=== PATIENT | male | born 1985 | race African-American/Black ===

== ENCOUNTER 2022-08-04 21:26 | Observation (INO) ==
[2022-08-04] MEDS ORDERED: ACETAMINOPHEN 1,000 MG/100 ML VIAL IV STA (22:06)
[2022-08-04 22:13] LABS: Basophils # (auto) 0.04 K/uL (0-0.2); Basophils % (auto) 0.3 %; Eosinophils # (auto) 0.06 K/uL (0-0.50); Eosinophils % (auto) 0.5 %; Hematocrit (blood only) 43.8 % (40.1-51.0); Immature Granulocytes # (auto) 0.05 K/uL (0.00-0.02); Immature Granulocytes % (auto) 0.4 %; Lymphocytes # (auto) 1.83 K/uL (1.2-3.4); Mean Corpuscular Hemoglobin 30.5 pg (25.0-34.0); Mean Corpuscular Hgb Conc 34.2 g/dL (32.0-36.0); Mean Corpuscular Volume 89.2 fL (80.0-100.0); Mean Platelet Volume 9.8 fL (9.4-12.4); Monocytes # (auto) 0.79 K/uL (0.24-0.82); Monocytes % (auto) 6.5 %; Neutrophils # (auto) 9.47 K/uL (1.4-6.5); Neutrophils % (auto) 77.3 %; Platelet Count 314 K/uL (130-400); RDW Coefficient of Variation 13.6 % (11.5-14.5); RDW Standard Deviation 44.7 fL (36.4-46.3); Red Blood Count 4.91 M/uL (4.63-6.08); White Blood Count 12.24 K/ul (4.8-10.8)
[2022-08-04 22:37] LABS: Alanine Aminotransferase 55 U/L (7-52); Albumin Globulin Ratio 0.9 (0.9-2); Albumin Level 3.6 gm/dl (3.4-5.0); Alkaline Phosphatase 139 U/L (34-104); Anion Gap 8 (3-11); Aspartate Aminotransferase 30 U/L (13-39); BUN Creatinine Ratio 10.2 (10-20); Bilirubin,Total 1.1 mg/dl (0.2-1.0); Blood Urea Nitrogen 18 mg/dl (6-23); Calcium 9.4 mg/dl (8.5-10.1); Carbon Dioxide 23 mmol/L (21-32); Chloride 100 mmol/L (98-107); Est GFR (Non-African American) 48.3 ml/min; Globulin 4.2 gm/dl (2.5-4.0); Glucose 100 mg/dl (70-99(Fasting)); Potassium 3.8 mmol/L (3.5-5.1); Sodium 131 mmol/L (136-145); Total Protein 7.8 gm/dl (6.0-8.3)
[2022-08-04 23:09] LABS: Alanine Aminotransferase 50 U/L (7-52); Albumin Level 3.4 gm/dl (3.4-5.0); Alkaline Phosphatase 125 U/L (34-104); Anion Gap 10 (3-11); Aspartate Aminotransferase 28 U/L (13-39); BUN Creatinine Ratio 11.6 (10-20); Bilirubin Direct 0.3 mg/dl (0-0.2); Bilirubin,Total 1.1 mg/dl (0.2-1.0); Blood Urea Nitrogen 18 mg/dl (6-23); Carbon Dioxide 21 mmol/L (21-32); Chloride 101 mmol/L (98-107); Est GFR (African American) 65.8 ml/min; Est GFR (Non-African American) 56.8 ml/min; Glucose 96 mg/dl (70-99(Fasting)); Magnesium 1.8 mg/dl (1.7-2.4); Potassium 3.9 mmol/L (3.5-5.1); Sodium 132 mmol/L (136-145); Total Protein 7.2 gm/dl (6.0-8.3)
[2022-08-04 23:21] LABS: Adenovirus PCR Not Detected (NotDetected); Bordetella parapertussis PCR Not Detected (NotDetected); Bordetella pertussis PCR Not Detected (NotDetected); Chlamydia pneumoniae PCR Not Detected (NotDetected); Coronavirus 229E PCR Not Detected (NotDetected); Coronavirus CoV-2 (COVID19)PCR Not Detected (NotDetected); Coronavirus HKU1 PCR Not Detected (NotDetected); Coronavirus NL63 PCR Not Detected (NotDetected); Coronavirus OC43PCR Not Detected (NotDetected); Human Metapneumovirus PCR Not Detected (NotDetected); Influenza A PCR Not Detected (NotDetected); Influenza B PCR Not Detected (NotDetected); Mycoplasma pneumoniae PCR Not Detected (NotDetected); Parainfluenza Virus 1 PCR Not Detected (NotDetected); Parainfluenza Virus 2 PCR Not Detected (NotDetected); Parainfluenza Virus 3 PCR Not Detected (NotDetected); Parainfluenza Virus 4 PCR Not Detected (NotDetected); Respiratory Syncytial VirusPCR Not Detected (NotDetected); Rhinovirus/Enterovirus PCR Not Detected (NotDetected)
[2022-08-04] MEDS ORDERED: SODIUM CHLORIDE 0.9% 1000ML 2,000 ML IV ONE (23:30)
--- NOTE | 2022-08-05 01:47 | Emergency Department Note ---
History of Present Illness General Chief complaint: Headache Stated complaint: HEADACHE, STIFF NECK, PAIN IN FEET Time Seen by Provider: 08/04/22 22:01 History of Present Illness Maximum Pain Intensity: 8 This 36-year-old presents to the ER complaining of flu like illness Location: Generalized Quality: Achy Severity: Moderate Duration: Past day Timing: Started yesterday Context: Patient was concerned and came in Modifying factors: better with rest; worse with activity Patient complains of fever, headache, body aches and pains. Patient adamantly denies neck stiffness, chest pain, dyspnea, abdominal pain. He states his neck feels fine he just feels crampy all over. No prior heart conditions. Home Medications Medication Instructions Recorded Confirmed Type acetaminophen 300 mg-codeine 30 mg 1 tab PO Q4H PRN Pain 02/13/22 02/13/22 History tablet losartan 50 mg tablet 50 mg PO DAILY 02/13/22 02/13/22 History penicillin V potassium 500 mg 500 mg PO TID 02/13/22 02/13/22 History tablet prednisone 10 mg tablet 10 mg PO UD #30 tabs 02/13/22 Rx prednisone 20 mg tablet 20 mg PO DAILY #18 tabs 03/30/22 Rx naproxen 500 mg tablet 500 mg PO BID PRN pain #20 tabs 07/24/22 Rx Allergies Allergy/AdvReac Type Severity Reaction Status Date / Time No Known Allergies Allergy Verified 02/13/22 18:07 Past Med/Surg History Medical History Gout HTN (hypertension) Surgical History No pertinent past surgical history Social History Smoking Status: Current every day smoker Tobacco Type: E-cigarettes / Vaping Preferred Language: Hebrew Feels Safe at Home: Yes Review of Systems A total of 10 systems reviewed and were otherwise negative Physical Exam Vital Signs Vital Signs - 24 hr 08/04/22 21:28 08/04/22 22:23 08/04/22 22:21 Temperature 37.0 C Temperature Source Temporal Artery Scan Pulse Rate 110 H Pulse Rate [Apical] 104 H Respiratory Rate 20 18 Respiratory Effort / Characteristics Non-Labored Respiratory Depth Normal Normal Respiratory Pattern Regular Blood Pressure 162/115 H Blood Pressure [Right Arm] 162/99 H Blood Pressure Mean 130 Blood Pressure Mean [Right Arm] 120 Pulse Oximetry 94 98 98 Oxygen Delivery Method Room Air Room Air Room Air Sepsis New/Unexplained Change in Mental Status N/A Sepsis Action Taken by Nursing No Action Required 08/04/22 23:00 08/05/22 02:59 Temperature Temperature Source Pulse Rate Pulse Rate [Apical] 99 H 84 Respiratory Rate 26 H 20 Respiratory Effort / Characteristics Respiratory Depth Respiratory Pattern Blood Pressure Blood Pressure [Right Arm] 160/110 H 157/102 H Blood Pressure Mean Blood Pressure Mean [Right Arm] 126 120 Pulse Oximetry 93 96 Oxygen Delivery Method Room Air Room Air Sepsis New/Unexplained Change in Mental Status Sepsis Action Taken by Nursing VITALS: Vitals are noted on the nurse's note and reviewed by myself. Vital signs febrile. GENERAL: Mildly ill-appearing, in no acute distress, nondiaphoretic, well- developed well-nourished. SKIN: The skin was without rashes, erythema, edema, or bruising. There is no tenting of the skin. Capillary reflex less than 2 seconds. HEAD: Normocephalic atraumatic. EARS: External auditory canals clear, tympanic membranes pearly seth without erythema or effusion bilaterally. EYES: Pupils equal round and reactive to light and accommodation. Conjunctivae without injection, sclerae without icterus. Extraocular movements intact. NOSE: Patent, turbinates without inflammation or discharge. No sinus tenderness. MOUTH: Mucous membranes mildly dry. Pharynx without erythema or exudate. Uvula midline. Airway patent. Tongue does not deviate. NECK: Supple without nuchal rigidity. No lymphadenopathy. No thyromegaly. Cervical spine is nontender. No JVD. HEART: Mildly tachycardic rate and rhythm LUNGS: Clear to auscultation bilaterally without wheezes, rales or rhonchi. No retractions or accessory muscle use. ABDOMEN: Positive bowel sounds x 4. Normal tympanic percussion. Soft, nontender, without masses or organomegaly. Mendez sign negative. No guarding or rebound tenderness. No CVA tenderness MUSCULOSKELETAL: No muscle atrophy, erythema, or edema noted. NEURO: Patient was alert and oriented to person place and time. Normal sensation to light and sharp touch. No focal neurological deficits. Course Administered Medications Discontinued Medications Acetaminophen (Ofirmev) 1,000 mg in 100 mls @ 400 mls/hr IV NOW STA Stop: 08/04/22 22:20 Last Infusion: 08/04/22 22:37 Dose: 0 mls/hr Documented By: Admin: 08/04/22 22:16 Dose: 400 mls/hr Documented By: MATTHEW Sodium Chloride (Nss 1000ml) 2,000 mls @ 999 mls/hr IV .Q2H1M ONE Stop: 08/05/22 01:30 Last Infusion: 08/05/22 02:06 Dose: 0 mls/hr Documented By: Admin: 08/04/22 23:45 Dose: 999 mls/hr Documented By: ARUN Ceftriaxone Sodium (Rocephin) 2,000 mg in 70 mls @ 140 mls/hr IV NOW STA Stop: 08/05/22 02:52 Last Admin: 08/05/22 02:35 Dose: Not Given Documented By: ARUN Ceftriaxone Sodium (Rocephin) 2,000 mg in 70 mls @ 140 mls/hr IV NOW STA Stop: 08/05/22 03:08 Last Admin: 08/05/22 02:55 Dose: 140 mls/hr Documented By: ARUN Losartan Potassium (Losartan Potassium 50 Mg Tab) 50 mg PO NOW STA Stop: 08/05/22 02:23 Last Admin: 08/05/22 02:39 Dose: 50 mg Documented By: ARUN Medical Decision Making Medical Records Attestation: I reviewed the patient's medical records. Home Medications Current Medication List: was personally reviewed by me Laboratory Data Attestation: I reviewed the patient's lab results. Result diagrams: 08/04/22 22:00 08/04/22 22:32 Lab Results 08/04/22 08/04/22 08/04/22 Range/Units 22:00 22:00 22:17 WBC 12.24 H (4.8-10.8) K/ul RBC 4.91 (4.63-6.08) M/uL Hgb 15.0 (14.0-18.0) g/dl Hct 43.8 (40.1-51.0) % MCV 89.2 (80.0-100.0) fL MCH 30.5 (25.0-34.0) pg MCHC 34.2 (32.0-36.0) g/dL RDW Std Deviation 44.7 (36.4-46.3) fL RDW Coeff of [place] 13.6 (11.5-14.5) % Plt Count 314 (130-400) K/uL MPV 9.8 (9.4-12.4) fL Immature Gran % (Auto) 0.4 % Neut % (Auto) 77.3 % Lymph % (Auto) 15.0 % [place] % (Auto) 6.5 % Eos % (Auto) 0.5 % Baso % (Auto) 0.3 % Neut # (Auto) 9.47 H (1.4-6.5) K/uL Lymph # (Auto) 1.83 (1.2-3.4) K/uL [place] # (Auto) 0.79 (0.24-0.82) K/uL Eos # (Auto) 0.06 (0-0.50) K/uL Baso # (Auto) 0.04 (0-0.2) K/uL Immature Gran # (Auto) 0.05 H (0.00-0.02) K/uL APTT (21.0-31.0) Seconds PTT Ratio Sodium 131 L (136-145) mmol/L Potassium 3.8 (3.5-5.1) mmol/L Chloride 100 (98-107) mmol/L Carbon Dioxide 23 (21-32) mmol/L Anion Gap 8 (3-11) BUN 18 (6-23) mg/dl Creatinine 1.77 H (0.6-1.4) mg/dl Est Cr Clr Drug Dosing Not Reportable Est GFR ( Amer) 56.0 ml/min Est GFR (Non-Af Amer) 48.3 ml/min BUN/Creatinine Ratio 10.2 (10-20) Glucose 100 H (70-99(Fasting)) mg/dl Lactate (0.4-2.0) mmol/L Calcium 9.4 (8.5-10.1) mg/dl Magnesium (1.7-2.4) mg/dl Total Bilirubin 1.1 H (0.2-1.0) mg/dl Direct Bilirubin (0-0.2) mg/dl AST 30 (13-39) U/L ALT 55 H (7-52) U/L Alkaline Phosphatase 139 H (34-104) U/L Troponin I High Sens (0-20) pg/ml Total Protein 7.8 (6.0-8.3) gm/dl Albumin 3.6 (3.4-5.0) gm/dl Globulin 4.2 H (2.5-4.0) gm/dl Albumin/Globulin Ratio 0.9 (0.9-2) Procalcitonin (0-0.5) ng/ml Urine Color Urine Appearance (Clear) Urine pH (4.5-7.5) Ur Specific [place] (1.000-1.030) Urine Protein (Negative) Urine Glucose (UA) (Negative) Urine Ketones (Negative) Urine Blood (Negative) Urine Nitrite (Negative) Urine Bilirubin (Negative) Urine Urobilinogen (Negative) Ur Leukocyte Esterase (Negative) Urine WBC (Auto) (0-5) /hpf Urine RBC (Auto) (0-4) /hpf U Hyaline Cast (Auto) (0-5) /lpf U Epithel Cells (Auto) (0-5) /lpf Urine Bacteria (Auto) (Negative) Adenovirus (PCR) Not Detected (NotDetected) B. pertussis DNA (PCR) Not Detected (NotDetected) B.parapertussis DNA PCR Not Detected (NotDetected) Lyme Disease IgG Ab (Negative) Lyme Disease IgM Ab (Negative) C. pneumoniae DNA (PCR) Not Detected (NotDetected) Coronavirus OC43 (PCR) Not Detected (NotDetected) Coronavirus HKU1 (PCR) Not Detected (NotDetected) Coronavirus 229E (PCR) Not Detected (NotDetected) SARS-CoV-2 (PCR) Not Detected (NotDetected) Coronavirus NL63 (PCR) Not Detected (NotDetected) Human Metapneumovir PCR Not Detected (NotDetected) Influenza Type A (PCR) Not Detected (NotDetected) Influenza Type B (PCR) Not Detected (NotDetected) M. pneumoniae (PCR) Not Detected (NotDetected) Parainfluenza 1 (PCR) Not Detected (NotDetected) Parainfluenza 2 (PCR) Not Detected (NotDetected) Parainfluenza 3 (PCR) Not Detected (NotDetected) Parainfluenza 4 (PCR) Not Detected (NotDetected) RSV (PCR) Not Detected (NotDetected) Entero/Rhino (PCR) Not Detected (NotDetected) 08/04/22 08/04/22 08/04/22 Range/Units 22:32 22:32 22:32 WBC (4.8-10.8) K/ul RBC (4.63-6.08) M/uL Hgb (14.0-18.0) g/dl Hct (40.1-51.0) % MCV (80.0-100.0) fL MCH (25.0-34.0) pg MCHC (32.0-36.0) g/dL RDW Std Deviation (36.4-46.3) fL RDW Coeff of [place] (11.5-14.5) % Plt Count (130-400) K/uL MPV (9.4-12.4) fL Immature Gran % (Auto) % Neut % (Auto) % Lymph % (Auto) % [place] % (Auto) % Eos % (Auto) % Baso % (Auto) % Neut # (Auto) (1.4-6.5) K/uL Lymph # (Auto) (1.2-3.4) K/uL [place] # (Auto) (0.24-0.82) K/uL Eos # (Auto) (0-0.50) K/uL Baso # (Auto) (0-0.2) K/uL Immature Gran # (Auto) (0.00-0.02) K/uL APTT (21.0-31.0) Seconds PTT Ratio Sodium 132 L (136-145) mmol/L Potassium 3.9 (3.5-5.1) mmol/L Chloride 101 (98-107) mmol/L Carbon Dioxide 21 (21-32) mmol/L Anion Gap 10 (3-11) BUN 18 (6-23) mg/dl Creatinine 1.55 H (0.6-1.4) mg/dl Est Cr Clr Drug Dosing Not Reportable Est GFR ( Amer) 65.8 ml/min Est GFR (Non-Af Amer) 56.8 ml/min BUN/Creatinine Ratio 11.6 (10-20) Glucose 96 (70-99(Fasting)) mg/dl Lactate 0.7 (0.4-2.0) mmol/L Calcium 9.0 (8.5-10.1) mg/dl Magnesium 1.8 (1.7-2.4) mg/dl Total Bilirubin 1.1 H (0.2-1.0) mg/dl Direct Bilirubin 0.3 H (0-0.2) mg/dl AST 28 (13-39) U/L ALT 50 (7-52) U/L Alkaline Phosphatase 125 H (34-104) U/L Troponin I High Sens 59.0 H* (0-20) pg/ml Total Protein 7.2 (6.0-8.3) gm/dl Albumin 3.4 (3.4-5.0) gm/dl Globulin (2.5-4.0) gm/dl Albumin/Globulin Ratio (0.9-2) Procalcitonin 0.99 H (0-0.5) ng/ml Urine Color Urine Appearance (Clear) Urine pH (4.5-7.5) Ur Specific [place] (1.000-1.030) Urine Protein (Negative) Urine Glucose (UA) (Negative) Urine Ketones (Negative) Urine Blood (Negative) Urine Nitrite (Negative) Urine Bilirubin (Negative) Urine Urobilinogen (Negative) Ur Leukocyte Esterase (Negative) Urine WBC (Auto) (0-5) /hpf Urine RBC (Auto) (0-4) /hpf U Hyaline Cast (Auto) (0-5) /lpf U Epithel Cells (Auto) (0-5) /lpf Urine Bacteria (Auto) (Negative) Adenovirus (PCR) (NotDetected) B. pertussis DNA (PCR) (NotDetected) B.parapertussis DNA PCR (NotDetected) Lyme Disease IgG Ab (Negative) Lyme Disease IgM Ab (Negative) C. pneumoniae DNA (PCR) (NotDetected) Coronavirus OC43 (PCR) (NotDetected) Coronavirus HKU1 (PCR) (NotDetected) Coronavirus 229E (PCR) (NotDetected) SARS-CoV-2 (PCR) (NotDetected) Coronavirus NL63 (PCR) (NotDetected) Human Metapneumovir PCR (NotDetected) Influenza Type A (PCR) (NotDetected) Influenza Type B (PCR) (NotDetected) M. pneumoniae (PCR) (NotDetected) Parainfluenza 1 (PCR) (NotDetected) Parainfluenza 2 (PCR) (NotDetected) Parainfluenza 3 (PCR) (NotDetected) Parainfluenza 4 (PCR) (NotDetected) RSV (PCR) (NotDetected) Entero/Rhino (PCR) (NotDetected) 08/04/22 08/04/22 08/04/22 Range/Units 22:32 22:32 23:42 WBC (4.8-10.8) K/ul RBC (4.63-6.08) M/uL Hgb (14.0-18.0) g/dl Hct (40.1-51.0) % MCV (80.0-100.0) fL MCH (25.0-34.0) pg MCHC (32.0-36.0) g/dL RDW Std Deviation (36.4-46.3) fL RDW Coeff of [place] (11.5-14.5) % Plt Count (130-400) K/uL MPV (9.4-12.4) fL Immature Gran % (Auto) % Neut % (Auto) % Lymph % (Auto) % [place] % (Auto) % Eos % (Auto) % Baso % (Auto) % Neut # (Auto) (1.4-6.5) K/uL Lymph # (Auto) (1.2-3.4) K/uL [place] # (Auto) (0.24-0.82) K/uL Eos # (Auto) (0-0.50) K/uL Baso # (Auto) (0-0.2) K/uL Immature Gran # (Auto) (0.00-0.02) K/uL APTT 30.2 (21.0-31.0) Seconds PTT Ratio 1.1 Sodium (136-145) mmol/L Potassium (3.5-5.1) mmol/L Chloride (98-107) mmol/L Carbon Dioxide (21-32) mmol/L Anion Gap (3-11) BUN (6-23) mg/dl Creatinine (0.6-1.4) mg/dl Est Cr Clr Drug Dosing Est GFR ( Amer) ml/min Est GFR (Non-Af Amer) ml/min BUN/Creatinine Ratio (10-20) Glucose (70-99(Fasting)) mg/dl Lactate (0.4-2.0) mmol/L Calcium (8.5-10.1) mg/dl Magnesium (1.7-2.4) mg/dl Total Bilirubin (0.2-1.0) mg/dl Direct Bilirubin (0-0.2) mg/dl AST (13-39) U/L ALT (7-52) U/L Alkaline Phosphatase (34-104) U/L Troponin I High Sens 54.2 H* (0-20) pg/ml Total Protein (6.0-8.3) gm/dl Albumin (3.4-5.0) gm/dl Globulin (2.5-4.0) gm/dl Albumin/Globulin Ratio (0.9-2) Procalcitonin (0-0.5) ng/ml Urine Color Urine Appearance (Clear) Urine pH (4.5-7.5) Ur Specific [place] (1.000-1.030) Urine Protein (Negative) Urine Glucose (UA) (Negative) Urine Ketones (Negative) Urine Blood (Negative) Urine Nitrite (Negative) Urine Bilirubin (Negative) Urine Urobilinogen (Negative) Ur Leukocyte Esterase (Negative) Urine WBC (Auto) (0-5) /hpf Urine RBC (Auto) (0-4) /hpf U Hyaline Cast (Auto) (0-5) /lpf U Epithel Cells (Auto) (0-5) /lpf Urine Bacteria (Auto) (Negative) Adenovirus (PCR) (NotDetected) B. pertussis DNA (PCR) (NotDetected) B.parapertussis DNA PCR (NotDetected) Lyme Disease IgG Ab Negative (Negative) Lyme Disease IgM Ab Negative (Negative) C. pneumoniae DNA (PCR) (NotDetected) Coronavirus OC43 (PCR) (NotDetected) Coronavirus HKU1 (PCR) (NotDetected) Coronavirus 229E (PCR) (NotDetected) SARS-CoV-2 (PCR) (NotDetected) Coronavirus NL63 (PCR) (NotDetected) Human Metapneumovir PCR (NotDetected) Influenza Type A (PCR) (NotDetected) Influenza Type B (PCR) (NotDetected) M. pneumoniae (PCR) (NotDetected) Parainfluenza 1 (PCR) (NotDetected) Parainfluenza 2 (PCR) (NotDetected) Parainfluenza 3 (PCR) (NotDetected) Parainfluenza 4 (PCR) (NotDetected) RSV (PCR) (NotDetected) Entero/Rhino (PCR) (NotDetected) 08/05/22 Range/Units 02:58 WBC (4.8-10.8) K/ul RBC (4.63-6.08) M/uL Hgb (14.0-18.0) g/dl Hct (40.1-51.0) % MCV (80.0-100.0) fL MCH (25.0-34.0) pg MCHC (32.0-36.0) g/dL RDW Std Deviation (36.4-46.3) fL RDW Coeff of [place] (11.5-14.5) % Plt Count (130-400) K/uL MPV (9.4-12.4) fL Immature Gran % (Auto) % Neut % (Auto) % Lymph % (Auto) % [place] % (Auto) % Eos % (Auto) % Baso % (Auto) % Neut # (Auto) (1.4-6.5) K/uL Lymph # (Auto) (1.2-3.4) K/uL [place] # (Auto) (0.24-0.82) K/uL Eos # (Auto) (0-0.50) K/uL Baso # (Auto) (0-0.2) K/uL Immature Gran # (Auto) (0.00-0.02) K/uL APTT (21.0-31.0) Seconds PTT Ratio Sodium (136-145) mmol/L Potassium (3.5-5.1) mmol/L Chloride (98-107) mmol/L Carbon Dioxide (21-32) mmol/L Anion Gap (3-11) BUN (6-23) mg/dl Creatinine (0.6-1.4) mg/dl Est Cr Clr Drug Dosing Est GFR ( Amer) ml/min Est GFR (Non-Af Amer) ml/min BUN/Creatinine Ratio (10-20) Glucose (70-99(Fasting)) mg/dl Lactate (0.4-2.0) mmol/L Calcium (8.5-10.1) mg/dl Magnesium (1.7-2.4) mg/dl Total Bilirubin (0.2-1.0) mg/dl Direct Bilirubin (0-0.2) mg/dl AST (13-39) U/L ALT (7-52) U/L Alkaline Phosphatase (34-104) U/L Troponin I High Sens (0-20) pg/ml Total Protein (6.0-8.3) gm/dl Albumin (3.4-5.0) gm/dl Globulin (2.5-4.0) gm/dl Albumin/Globulin Ratio (0.9-2) Procalcitonin (0-0.5) ng/ml Urine Color Yellow Urine Appearance Clear (Clear) Urine pH 6.5 (4.5-7.5) Ur Specific [place] 1.023 (1.000-1.030) Urine Protein 2+ H (Negative) Urine Glucose (UA) Negative (Negative) Urine Ketones Negative (Negative) Urine Blood Trace H (Negative) Urine Nitrite Negative (Negative) Urine Bilirubin Negative (Negative) Urine Urobilinogen Negative (Negative) Ur Leukocyte Esterase Negative (Negative) Urine WBC (Auto) 1-5 (0-5) /hpf Urine RBC (Auto) 0-4 (0-4) /hpf U Hyaline Cast (Auto) 0 (0-5) /lpf U Epithel Cells (Auto) 5-10 H (0-5) /lpf Urine Bacteria (Auto) Negative (Negative) Adenovirus (PCR) (NotDetected) B. pertussis DNA (PCR) (NotDetected) B.parapertussis DNA PCR (NotDetected) Lyme Disease IgG Ab (Negative) Lyme Disease IgM Ab (Negative) C. pneumoniae DNA (PCR) (NotDetected) Coronavirus OC43 (PCR) (NotDetected) Coronavirus HKU1 (PCR) (NotDetected) Coronavirus 229E (PCR) (NotDetected) SARS-CoV-2 (PCR) (NotDetected) Coronavirus NL63 (PCR) (NotDetected) Human Metapneumovir PCR (NotDetected) Influenza Type A (PCR) (NotDetected) Influenza Type B (PCR) (NotDetected) M. pneumoniae (PCR) (NotDetected) Parainfluenza 1 (PCR) (NotDetected) Parainfluenza 2 (PCR) (NotDetected) Parainfluenza 3 (PCR) (NotDetected) Parainfluenza 4 (PCR) (NotDetected) RSV (PCR) (NotDetected) Entero/Rhino (PCR) (NotDetected) Imaging Data Attestation: I personally reviewed and interpreted this imaging study as follows: MDM Narrative Prior records/ancillary studies reviewed. Triage Nursing notes reviewed. Additional history obtained from nursing. The patient's history was concerning for fever. Differential diagnosis: Etiologies such as viral syndrome, otitis, pharyngitis, pneumonia, influenza, meningitis, urinary tract infection, sepsis, bacteremia, as well as others were entertained. Physical examination: As above ER treatment provided: An order was placed for continuous cardiac monitoring. The monitor shows a rate of 60-1 50 with a sinus rhythm. IV fluids, Tylenol On reassessment the patient felt better. Diagnostics interpreted by me: ECG: Ordered for tachycardia EKG: Normal sinus, normal intervals, T wave inversions in the anterior lateral leads, rate of 104. Impression sinus tachycardia with T wave inversions in the anterolateral leads interpreted by myself I think arrhythmia is unlikely. EKG shows normal sinus rhythm with no interval abnormalities such as QT prolongation or WPW. There are no findings to suggest Brugada syndrome. Cardiac monitoring in the emergency department reveals no t achycardic or bradycardic dysrhythmia. Hypertrophic cardiomyopathy was considered but there are no clear historical elements pointing toward this. EKG is not suggestive. The QRS voltage is not extremely large and there are no suggestive Q waves. EKG #2 ordered for positive troponin EKG: Normal sinus, normal intervals, T wave inversions in the anterior lateral leads, rate of 104. Impression sinus tachycardia with T wave inversions in the anterolateral leads interpreted by myself I think arrhythmia is unlikely. EKG shows normal sinus rhythm with no interval abnormalities such as QT prolongation or WPW. There are no findings to suggest Brugada syndrome. Cardiac monitoring in the emergency department reveals no tachycardic or bradycardic dysrhythmia. Hypertrophic cardiomyopathy was considered but there are no clear historical elements pointing toward this. EKG is not suggestive. The QRS voltage is not extremely large and there are no suggestive Q waves. The labs revealed positive troponin and repeat was trending down Negative bio fire Imaging studies: CTA CHEST: Cardiomegaly. No pulmonary embolus or aortic dissection. Clear lung parenchyma with no acute cardiopulmonary disease. No pleural effusion or pneumothorax. Decreased inspiratory effort with vascular crowding. Upper abdominal structures are unremarkable. Normal bony structures. Radiologist: Linda Schafer MD CT HEAD: No prior exam for comparison. No ICH, mass effect or edema. No evidence of acute cortical stroke. No space- occupying lesion. Visualized sinuses and mastoid air cells are clear. Radiologist: Linda Schafer MD Consultation: A consultation was placed with hospitalist. The case was discussed and diagnostics were reviewed. The patient was evaluated in the ER for further treatment. This appears to be consistent with possible pericarditis versus myocarditis. Patient has flulike illness and elevated cardiac enzymes with EKG changes. CTA was reviewed. Repeat EKG was similar to prior. No old EKG for comparison. Repeat troponin was trending down. Medicine is consulted. Patient will be evaluated for admission. By the evaluation outlined above emergent etiologies such as otitis, pharyngitis, pneumonia, meningitis, urinary tract infection, sepsis, bacteremia, as well as others were deemed relatively unlikely. The pt informed about the findings as listed above. All questions were answered and pleased with the treatment. The chart was completed utilizing stiQRd voice recognition software. Grammatical errors, random word insertions, pronoun errors, and incomplete sentences are an occassional consequence of this system due to software limitations, ambient noise, and hardware issues. Any formal questions or concerns about the content, text, or information contained within the body of this dictation should be directly addressed to the physician distribution center assistant for clarification. Impression & Plan Elevated troponin, Headache, Fever, Viral illness Discharge Plan Visit Data Chief Complaint: Headache Stated Complaint: HEADACHE, STIFF NECK, PAIN IN FEET ED Provider: Adolfo Dinero ED Midlevel Provider: Amanda Abdi Discharge Problem: Elevated troponin, Headache, Fever, Viral illness Patient Disposition: Admitted As Inpatient Condition: Fair Forms Stand Alone Forms: My [facility] Prescriptions Prescriptions: No Action prednisone 20 mg tablet 20 mg PO DAILY Qty: 18 0RF Rx Instructions: 3 tablets once daily x 3 days, 2 tablets once daily x 3 days, one tablet once daily x 3 days. naproxen 500 mg tablet 500 mg PO BID PRN (Reason: pain) Qty: 20 0RF losartan 50 mg tablet 50 mg PO DAILY penicillin V potassium 500 mg tablet 500 mg PO TID Rx Instructions: STARTED 02/02/22 FOR 21 DAYS, PER PT "STOPPED 2 DAYS AGO, FELT BETTER". acetaminophen-codeine 300-30 mg tablet 1 tab PO Q4H PRN (Reason: Pain) prednisone 10 mg tablet 10 mg PO UD Qty: 30 0RF Rx Instructions: 4 tablets daily for 3 days, then 3 tablets daily for 3 days, then 2 tablets daily for 3 days, then 1 tablet once a day times 3 days. Referrals Referrals: Mounika Jay PA-C [Primary Care Provider] -
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
[2022-08-05] MEDS ORDERED: LOSARTAN POTASSIUM 50 MG TAB PO STA (02:22)
[2022-08-05] MEDS ORDERED: cefTRIAXone SODIUM 2,000 MG/70 ML BAG IV STA ×2 (02:23→02:39)
[2022-08-05] MEDS ORDERED: LORazepam 0.5 MG TAB PO PRN (02:45)
[2022-08-05] MEDS ORDERED: PROMETHAZINE HCL 12.5 MG in SODIUM CHLORIDE 0.9% 50 ML IV PRN (02:45)
[2022-08-05] MEDS ORDERED: oxyCODONE HCL IR 5 MG TAB (IMMEDIATE RELEASE) PO PRN (02:45)
[2022-08-05] MEDS ORDERED: VANCOMYCIN CONSULT ACTIVE STA (02:47)
[2022-08-05] MEDS ORDERED: VANCOMYCIN CONSULT ACTIVE PRN (02:51)
[2022-08-05] MEDS ORDERED: DEXAMETHASONE SOD INJ 4 MG/ML VIAL IV STA (02:53)
[2022-08-05] MEDS ORDERED: SODIUM CHLORIDE 0.9% 1000ML 1,000 ML IV STA (02:53)
[2022-08-05] MEDS ORDERED: VANCOMYCIN HCL 2,000 MG in SODIUM CHLORIDE 0.9% 500 ML IV STA (03:02)
[2022-08-05 03:03] LABS: Partial Thromboplastin Ratio 1.1; Partial Thromboplastin Time 30.2 Seconds (21.0-31.0)
[2022-08-05 03:12] LABS: Appearance Urine Clear (Clear); Bacteria Urine Automated Negative (Negative); Bilirubin Urine Negative (Negative); Blood Urine Trace (Negative); Cast Urine Automated 0 /lpf (0-5); Color Urine Yellow; Glucose Urine UA Negative (Negative); Ketones Urine Negative (Negative); Leukocyte Esterase Urine Negative (Negative); Nitrite Urine Negative (Negative); Protein Urine 2+ (Negative); RBC Urine Automated 0-4 /hpf (0-4); Specific Gravity Urine 1.023 (1.000-1.030); Urobilinogen Urine Negative (Negative); pH Urine 6.5 (4.5-7.5)
[2022-08-05 03:27] LABS: Lyme Ab IgG w/WB Rflx Negative (Negative); Lyme Ab IgM w/WB Rflx Negative (Negative)
[2022-08-05] MEDS ORDERED: ACETAMINOPHEN 325 MG TAB PO PRN (04:35)
[2022-08-05] MEDS: HEPARIN SOD 5,000 UNIT/0.5 ML VIAL SQ SCH ×3 (05:37→21:15)
[2022-08-05 06:42] LABS: Basophils # (auto) 0.03 K/uL (0-0.2); Basophils % (auto) 0.3 %; Eosinophils # (auto) 0.16 K/uL (0-0.50); Eosinophils % (auto) 1.5 %; Hematocrit (blood only) 38.9 % (40.1-51.0); Hemoglobin 13.2 g/dl (14.0-18.0); Immature Granulocytes # (auto) 0.03 K/uL (0.00-0.02); Immature Granulocytes % (auto) 0.3 %; Lymphocytes # (auto) 2.08 K/uL (1.2-3.4); Lymphocytes % (auto) 19.6 %; Mean Corpuscular Hemoglobin 30.2 pg (25.0-34.0); Mean Corpuscular Hgb Conc 33.9 g/dL (32.0-36.0); Mean Platelet Volume 9.7 fL (9.4-12.4); Monocytes # (auto) 0.94 K/uL (0.24-0.82); Monocytes % (auto) 8.8 %; Neutrophils # (auto) 7.39 K/uL (1.4-6.5); Neutrophils % (auto) 69.5 %; Platelet Count 270 K/uL (130-400); RDW Coefficient of Variation 13.2 % (11.5-14.5); RDW Standard Deviation 43.5 fL (36.4-46.3); Red Blood Count 4.37 M/uL (4.63-6.08); White Blood Count 10.63 K/ul (4.8-10.8)
[2022-08-05 07:04] LABS: BUN Creatinine Ratio 10.7 (10-20); Calcium 8.5 mg/dl (8.5-10.1); Creatinine Clr Calc Pharmacy 73.9 ml/min; Est GFR (African American) 68.4 ml/min; Potassium 3.8 mmol/L (3.5-5.1)
--- NOTE | 2022-08-05 08:20 | CT Scan Report ---
CHEST CTA for PULMONARY ARTERIES CT DOSE: 526.56 mGy.cm HISTORY: Shortness of breath. TECHNIQUE: Multiaxial CT images of the chest were performed following the intravenous administration of contrast to evaluate the pulmonary arteries. Maximal intensity projection images were also obtaine d. A dose lowering technique was utilized adhering to the principles of ALARA. COMPARISON STUDY: None. FINDINGS: Normal caliber thoracic aorta with no evidence for dissection. The heart is mildly enlarged with hypertrophy of the left ventricle. No evidence for right-sided heart strain. No filling defects within the pulmonary arteries to suggest a pulmonary embolus. Hepatic steatosis. The visualized sple en and adrenal glands are unremarkable. No pleural or pericardial effusions. Normal thyroid gland. No mediastinal or hilar lymphadenopathy. Normal caliber esophagus. Old, healed left posterior 11th rib fracture. The central airways are patent. No pneumothorax. A 5 mm subpleural nodule within the right upper lobe on image 126. No focal lung consolidations to suggest a pneumonia. IMPRESSION: 1. No evidence for pulmonary embolus. 2. Mild cardiomegaly with hypertrophy of the left ventricle. Follow-up nonemergent cardiology consult ation recommended. 3. Hepatic steatosis. 4. A 5 mm subpleural nodule within the right upper lobe. This is low suspicion given the patient's ag e. Consider one year chest CT follow-up to ensure resolution. ACT 112: Positive. There are findings on this exam that require communication between the performing entity and the patient following Patient Test Result Information Act ([place] Act 112) guidelines. Electronically signed by: Miguel A Barrow M.D. 08/05/2022 8:18 AM
[2022-08-05] MEDS: dexAMETHasone 10 MG in SYRINGE 0 ML IV SCH ×2 (08:37→15:17)
--- NOTE | 2022-08-05 08:40 | XRay Report ---
XR chest 1V portable HISTORY: Sepsis COMPARISON: None. FINDINGS: The lungs are clear. No pleural effusions. No pneumothorax. Mild enlargement of the cardiac silhouette. The trachea is midline and patent. IMPRESSION: Mild cardiomegaly. ACT 112: Negative or not required by law. Electronically signed by: Miguel A Barrow M.D. 08/05/2022 8:39 AM
--- NOTE | 2022-08-05 09:38 | CT Scan Report ---
CT OF THE HEAD WITHOUT CONTRAST CLINICAL HISTORY: Headache. COMPARISON STUDY: No previous studies for comparison. CT DOSE: 614.27 mGy.cm TECHNIQUE: Helical axial images of the head were obtained without IV contrast. Automated exposure con trol was utilized for the study. A dose lowering technique was utilized adhering to the principles o f ALARA. FINDINGS: No acute intracranial hemorrhage, midline shift or mass effect is present. The ventricular system is unremarkable. The basal cisterns are patent. No extra-axial collections are present. There are no findings to suggest acute dural sinus thrombosis or acute territorial infarct. No significant calvarial abnormalities are present. Visualized portions of the sinuses and mastoid air cells are shelbie ar. IMPRESSION: No acute intracranial findings. ACT 112: Negative or not required by law. Electronically signed by: Dale Contreras M.D. 08/05/2022 9:37 AM
[2022-08-05] MEDS ORDERED: VANCOMYCIN HCL 1,000 MG in SODIUM CHLORIDE 0.9% 250 ML IV SCH (10:00)
--- NOTE | 2022-08-05 12:44 | Electrocardiogram Report ---
Test Reason : Blood Pressure : / mmHG Vent. Rate : 104 BPM Atrial Rate : 104 BPM P-R Int : 132 ms QRS Dur : 094 ms QT Int : 338 ms P-R-T Axes : 042 024 167 degrees QTc Int : 444 ms Sinus tachycardia T wave abnormality, consider lateral ischemia Abnormal ECG No previous ECGs available Confirmed by Ricardo Seaman ([id number]) on 08/05/2022 12:43:41 PM Referred By: REFERRED SELF Confirmed By:Ricardo Seaman
--- NOTE | 2022-08-05 12:47 | Electrocardiogram Report ---
Test Reason : Blood Pressure : / mmHG Vent. Rate : 098 BPM Atrial Rate : 098 BPM P-R Int : 134 ms QRS Dur : 094 ms QT Int : 356 ms P-R-T Axes : 043 033 172 degrees QTc Int : 454 ms Normal sinus rhythm T wave abnormality, consider inferolateral ischemia Abnormal ECG When compared with ECG of 04-AUG-2022 21:52, (unconfirmed) No significant change was found Confirmed by Ricardo Seaman ([id number]) on 08/05/2022 12:47:19 PM Referred By: REFERRED SELF Confirmed By:Ricardo Seaman
--- NOTE | 2022-08-05 13:37 | Pharmacy Report ---
Pharmacy PK ABX Note - Date of Service August 05, 2022 - Assessment and Plan Assessment * Mr Duncan is a 36 year old M receiving Vancomycin/ceftriaxone for treatment of ?bacterial meningitis. * Pt presented with few days of headache, stiff neck, fever, chills. Pt has refused diagnostic LP. * Pertinent microbiologic data includes: blood cultures pending * ID consult pending Plan Vancomycin * Loading dose: 2000 mg IV x 1 * Maintenance dose: 1000 mg IV every 12 hours * Regimen is predicted to achieve target AUC/NATALIE of 400-600 mg/L.hr * Trough level ordered for tomorrow, prior to the 3rd maintenance dose. This will not yet be steady-state. Ceftriaxone -- increased to 2gm IV q12h (meningitis dosing) Pharmacy will continue to follow and will adjust dose/frequency as necessary. Thank you. Pharmacy has transitioned to AUC monitoring for vancomycin. AUC/NATALIE is the preferred PK/PD target and is associated with decreased risk of nephrotoxicity compared to traditional trough targets.
--- NOTE | 2022-08-05 15:20 | Hospitalist Progress Note ---
Date of Service August 05, 2022 Assessment & Plan (1) Headache: Plan: Has been complaining of headache for the last few days Without any photophobia and without any other neurological symptoms Headache is likely secondary to high blood pressure Possible meningitis Did not have any significant symptoms and/or examination findings of meningitis Fever and sweating is likely secondary to viral illness as below Started with intravenous vancomycin and ceftriaxone and also IV Decadron for possible pneumococcal meningitis Appreciate ID input and recommendation We will discontinue IV antibiotic and observe for 24 hours for any fever or recurrence of symptoms In that case we will start IV antibiotic for 10 days in total (2) Viral illness: Plan: Has been having fever with sweating for the last 3 days Body aches and neck pain with some stiffness No other signs of meningitis on examination today (3) HTN (hypertension): Plan: As above blood pressure was noted to very high Pressure remains reasonable as of today We will continue current blood pressure medications (4) Gout: Plan: Recent attack of gout No complaints DVT prophylaxis Subcu heparin CODE STATUS Full Admission and Anticipated Discharge Date Admission Date: August 05, 2022 Subjective 08/05/2022 The patient was seen and examined in medical telemetry unit He has been complaining of headache and feverish feeling for the last 2 to 3 days No photophobia he did have some neck stiffness but that has been ongoing even before that He was admitted with a possible meningitis and was started with intravenous Vanco and ceftriaxone with dexamethasone Has been feeling much better and no signs and or symptoms of meningitis or meningism Review of Systems Review of Systems: All systems reviewed & are unremarkable except as noted in Subjective Physical Exam Physical Exam: Lying in bed comfortably Constitutional: well developed, well nourished and average body habitus; not ill appearing Eyes: PERRL, conjunctivae normal, anicteric sclerae ENMT: external ear and nose normal, oropharynx normal Neck: trachea midline, no thyromegaly Respiratory: no respiratory distress Auscultation: lungs clear to auscultation bilaterally Cardiovascular: Rate/Rhythm: regular rate and regular rhythm; not tachycardic Heart Sounds: normal S1, normal S2 and + abnormal opening sounds; no murmur Extremities: no edema Gastrointestinal (Abdomen): Inspection/Auscultation: normal bowel sounds; abdomen not distended Percussion/Palpation: abdomen soft; abdomen nontender Musculoskeletal: No acute arthritis in any joint Neurologic: Alert, awake and oriented, no photophobia, no neck is stiffness, negative Brudzinski and Kernig sign Psychiatric: A+Ox3, euthymic affect Lymphatic: no cervical or axillary lymphadenopathy Results & Data Results & Data ([facility]) Vital Signs (Past 12 Hours) Vital Signs Temp Pulse Pulse Resp BP BP Pulse Ox 08/05/22 12:28 36.9 C 86 H 150/74 H 96 08/05/22 08:41 37.0 C 20 163/101 H 97 08/05/22 05:43 79 08/05/22 05:29 37.1 C 82 16 97 08/05/22 05:03 08/05/22 04:05 84 18 162/89 H 96 O2 Del Method 08/05/22 12:28 Room Air 08/05/22 08:41 Room Air 08/05/22 05:43 08/05/22 05:29 Room Air 08/05/22 05:03 Room Air 08/05/22 04:05 Room Air Laboratory Results Short CBC 08/04/22 08/05/22 Range/Units 22:00 06:31 WBC 12.24 H 10.63 (4.8-10.8) K/ul Hgb 15.0 13.2 L (14.0-18.0) g/dl Hct 43.8 38.9 L (40.1-51.0) % Plt Count 314 270 (130-400) K/uL BMP 08/04/22 08/04/22 08/05/22 22:00 22:32 06:31 Sodium 131 L 132 L 134 L Potassium 3.8 3.9 3.8 Chloride 100 101 105 Carbon Dioxide 23 21 20 L BUN 18 18 16 Creatinine 1.77 H 1.55 H 1.50 H Glucose 100 H 96 98 Calcium 9.4 9.0 8.5 Liver Function 08/04/22 08/04/22 Range/Units 22:00 22:32 Total Bilirubin 1.1 H 1.1 H (0.2-1.0) mg/dl Direct Bilirubin 0.3 H (0-0.2) mg/dl AST 30 28 (13-39) U/L ALT 55 H 50 (7-52) U/L Alkaline Phosphatase 139 H 125 H (34-104) U/L Albumin 3.6 3.4 (3.4-5.0) gm/dl Urine 08/05/22 Range/Units 02:58 Urine Color Yellow Urine Appearance Clear (Clear) Urine pH 6.5 (4.5-7.5) Ur Specific [place] 1.023 (1.000-1.030) Urine Protein 2+ H (Negative) Urine Glucose (UA) Negative (Negative) Medications Administered Current Inpatient Medications Acetaminophen (Acetaminophen 325 Mg Tab) 650 mg PO Q4H PRN PRN Reason: Pain or Fever Stop: 09/04/22 04:34 Diltiazem HCl (Diltiazem Hcl 120 Mg Er Cap) 120 mg PO HS AIRAM Stop: 09/04/22 05:44 Last Admin: 08/05/22 08:18 Dose: 120 mg Heparin Sodium (Porcine) (Heparin Sod 5,000 Unit/0.5 Ml Vial) 5,000 units SQ Q8 AIRAM Stop: 09/04/22 05:59 Last Admin: 08/05/22 14:57 Dose: 5,000 units Sodium Chloride (Nss 1000ml) 1,000 mls @ 50 mls/hr IV .Q20H STA Stop: 08/05/22 22:52 Last Admin: 08/05/22 05:38 Dose: 50 mls/hr Promethazine HCl 12.5 mg/ (Sodium Chloride) 50.5 mls @ 202 mls/hr IV Q6H PRN PRN Reason: Nausea And Vomiting Stop: 09/04/22 02:44 Lorazepam (Lorazepam 0.5 Mg Tab) 0.5 mg PO TID PRN PRN Reason: Anxiety Stop: 09/04/22 02:44 Losartan Potassium (Losartan Potassium 50 Mg Tab) 50 mg PO DAILY AIRAM Stop: 09/05/22 08:59 Oxycodone HCl (Oxycodone Hcl Ir 5 Mg Tab (Immediate Release)) 5 mg PO Q4H PRN PRN Reason: Pain Stop: 08/19/22 02:44 (1) Gout Chronicity: acute Gout etiology: unspecified cause Gout site: unspecified site Qualified Code(s): M10.9 - Gout, unspecified
[2022-08-05] MEDS ORDERED: cefTRIAXone SODIUM 2,000 MG in DEXTROSE 5% 50 ML IV SCH (18:00)
[2022-08-05 22:35] LABS: Amphetamines+Metham, Urine Neg (Neg); Barbiturates, Urine Neg (Neg); Benzodiazepine, Urine Neg (Neg); Cocaine, Urine Neg (Neg); MDMA (Ecstacy), Urine Neg (Neg); Methadone, Urine Neg (Neg); Opiate, Urine Neg (Neg); Phencyclidine, Urine Neg (Neg)
[2022-08-06] MEDS: HEPARIN SOD 5,000 UNIT/0.5 ML VIAL SQ SCH ×3 (05:31→22:22)
[2022-08-06] MEDS ORDERED: cefTRIAXone SODIUM 2,000 MG in DEXTROSE 5% 50 ML IV SCH (06:00)
[2022-08-06 07:40] LABS: Basophils # (auto) 0.02 K/uL (0-0.2); Basophils % (auto) 0.2 %; Hematocrit (blood only) 39.8 % (40.1-51.0); Hemoglobin 13.6 g/dl (14.0-18.0); Immature Granulocytes # (auto) 0.05 K/uL (0.00-0.02); Immature Granulocytes % (auto) 0.5 %; Lymphocytes # (auto) 1.57 K/uL (1.2-3.4); Lymphocytes % (auto) 14.8 %; Mean Corpuscular Hemoglobin 30.7 pg (25.0-34.0); Mean Corpuscular Hgb Conc 34.2 g/dL (32.0-36.0); Mean Corpuscular Volume 89.8 fL (80.0-100.0); Monocytes # (auto) 0.82 K/uL (0.24-0.82); Monocytes % (auto) 7.7 %; Neutrophils # (auto) 8.16 K/uL (1.4-6.5); Neutrophils % (auto) 76.8 %; Platelet Count 349 K/uL (130-400); RDW Coefficient of Variation 13.6 % (11.5-14.5); RDW Standard Deviation 44.7 fL (36.4-46.3); Red Blood Count 4.43 M/uL (4.63-6.08); White Blood Count 10.62 K/ul (4.8-10.8)
[2022-08-06] MEDS: LOSARTAN POTASSIUM 50 MG TAB PO SCH (08:20)
[2022-08-06 08:30] LABS: Calcium 9.1 mg/dl (8.5-10.1); Creatinine Clr Calc Pharmacy 80.5 ml/min; Est GFR (African American) 75.7 ml/min; Est GFR (Non-African American) 65.3 ml/min; Potassium 4.6 mmol/L (3.5-5.1)
[2022-08-06] MEDS ORDERED: VANCOMYCIN LEVEL ONE (09:00)
--- NOTE | 2022-08-06 14:56 | Hospitalist Progress Note ---
Date of Service August 06, 2022 Assessment & Plan (1) Headache: Plan: Has been complaining of headache for the last few days Without any photophobia and without any other neurological symptoms Headache is likely secondary to high blood pressure No more headache and the blood pressure is maintaining though on the higher side at 163/81 Possible meningitis Did not have any significant symptoms and/or examination findings of meningitis Fever and sweating is likely secondary to viral illness as below Started with intravenous vancomycin and ceftriaxone and also IV Decadron for possible pneumococcal meningitis Appreciate ID input and recommendation We will discontinue IV antibiotic and observe for 24 hours for any fever or recurrence of symptoms In that case we will start IV antibiotic for 10 days in total No more fever and or chills and will need to observe for about 48 hours from the time antibiotics were discontinued So far no symptoms of meningism and or meningitis Likely discharge tomorrow (2) Viral illness: Plan: Has been having fever with sweating for the last 3 days Body aches and neck pain with some stiffness No other signs of meningitis on examination today (3) HTN (hypertension): Plan: As above blood pressure was noted to very high Pressure remains reasonable as of today We will continue current blood pressure medications Will increase losartan 200 mg a day (4) Gout: Plan: Recent attack of gout No complaints DVT prophylaxis Subcu heparin CODE STATUS Full Admission and Anticipated Discharge Date Admission Date: August 05, 2022 Subjective 08/05/2022 The patient was seen and examined in medical telemetry unit He has been complaining of headache and feverish feeling for the last 2 to 3 days No photophobia he did have some neck stiffness but that has been ongoing even before that He was admitted with a possible meningitis and was started with intravenous Vanco and ceftriaxone with dexamethasone Has been feeling much better and no signs and or symptoms of meningitis or meningism 08/06/2022 The patient was seen and examined in medical telemetry unit He remains stable and he does not have any neuro and/or meningeal symptoms No fever and or chills or events sweating Review of Systems Review of Systems: As per HPI, all other systems reviewed and negative Physical Exam Physical Exam: Lying in bed comfortably Constitutional: well developed, well nourished and average body habitus; not ill appearing Eyes: PERRL, conjunctivae normal, anicteric sclerae ENMT: external ear and nose normal, oropharynx normal Neck: trachea midline, no thyromegaly Respiratory: no respiratory distress Auscultation: lungs clear to auscultation bilaterally Cardiovascular: Rate/Rhythm: regular rate and regular rhythm; not tachycardic Heart Sounds: normal S1, normal S2 and + abnormal opening sounds; no murmur Extremities: no edema Gastrointestinal (Abdomen): Inspection/Auscultation: normal bowel sounds; abdomen not distended Percussion/Palpation: abdomen soft; abdomen nontender Neurologic: normal touch/pain/proprioception and moves all extremities; no focal motor deficits No neck is stiffness, no signs of meningitis and/or meningism Psychiatric: A+Ox3, euthymic affect Lymphatic: no cervical or axillary lymphadenopathy Results & Data Results & Data ([facility]) Vital Signs (Past 12 Hours) Vital Signs Temp Pulse Pulse Resp BP Pulse Ox O2 Del Method 08/06/22 14:52 36.7 C 78 20 163/81 H 97 Room Air 08/06/22 12:02 36.9 C 66 16 162/87 H 95 Room Air 08/06/22 07:39 57 L 08/06/22 07:32 36.6 C 73 16 162/96 H Room Air 08/06/22 03:41 36.6 C 79 20 166/76 H 98 Room Air Laboratory Results Short CBC 08/06/22 Range/Units 07:27 WBC 10.62 (4.8-10.8) K/ul Hgb 13.6 L (14.0-18.0) g/dl Hct 39.8 L (40.1-51.0) % Plt Count 349 (130-400) K/uL BMP 08/06/22 07:27 Sodium 134 L Potassium 4.6 D Chloride 107 Carbon Dioxide 19 L BUN 27 H Creatinine 1.38 Calcium 9.1 Medications Administered Current Inpatient Medications Acetaminophen (Acetaminophen 325 Mg Tab) 650 mg PO Q4H PRN PRN Reason: Pain or Fever Stop: 09/04/22 04:34 Diltiazem HCl (Diltiazem Hcl 120 Mg Er Cap) 120 mg PO HS AIRAM Stop: 09/04/22 05:44 Last Admin: 08/05/22 21:15 Dose: 120 mg Heparin Sodium (Porcine) (Heparin Sod 5,000 Unit/0.5 Ml Vial) 5,000 units SQ Q8 AIRAM Stop: 09/04/22 05:59 Last Admin: 08/06/22 05:31 Dose: 5,000 units Promethazine HCl 12.5 mg/ (Sodium Chloride) 50.5 mls @ 202 mls/hr IV Q6H PRN PRN Reason: Nausea And Vomiting Stop: 09/04/22 02:44 Lorazepam (Lorazepam 0.5 Mg Tab) 0.5 mg PO TID PRN PRN Reason: Anxiety Stop: 09/04/22 02:44 Losartan Potassium (Losartan Potassium 50 Mg Tab) 50 mg PO DAILY AIRAM Stop: 09/05/22 08:59 Last Admin: 08/06/22 08:20 Dose: 50 mg Oxycodone HCl (Oxycodone Hcl Ir 5 Mg Tab (Immediate Release)) 5 mg PO Q4H PRN PRN Reason: Pain Stop: 08/19/22 02:44 (1) Gout Chronicity: acute Gout etiology: unspecified cause Gout site: unspecified site Qualified Code(s): M10.9 - Gout, unspecified
[2022-08-06] MEDS ORDERED: dilTIAZem ER 180 MG CAPCR PO SCH (21:00)
[2022-08-07] MEDS: HEPARIN SOD 5,000 UNIT/0.5 ML VIAL SQ SCH (06:35)
[2022-08-07 07:07] LABS: Basophils # (auto) 0.02 K/uL (0-0.2); Basophils % (auto) 0.2 %; Eosinophils % (auto) 0.9 %; Hematocrit (blood only) 40.5 % (40.1-51.0); Hemoglobin 13.7 g/dl (14.0-18.0); Immature Granulocytes # (auto) 0.04 K/uL (0.00-0.02); Immature Granulocytes % (auto) 0.4 %; Lymphocytes # (auto) 3.63 K/uL (1.2-3.4); Lymphocytes % (auto) 31.9 %; Mean Corpuscular Hemoglobin 30.8 pg (25.0-34.0); Mean Corpuscular Hgb Conc 33.8 g/dL (32.0-36.0); Mean Platelet Volume 10.5 fL (9.4-12.4); Monocytes # (auto) 0.48 K/uL (0.24-0.82); Monocytes % (auto) 4.2 %; Neutrophils # (auto) 7.11 K/uL (1.4-6.5); Neutrophils % (auto) 62.4 %; Platelet Count 412 K/uL (130-400); RDW Coefficient of Variation 13.6 % (11.5-14.5); RDW Standard Deviation 45.8 fL (36.4-46.3); Red Blood Count 4.45 M/uL (4.63-6.08); White Blood Count 11.38 K/ul (4.8-10.8)
[2022-08-07 07:26] LABS: BUN Creatinine Ratio 20.9 (10-20); Calcium 9.1 mg/dl (8.5-10.1); Creatinine Clr Calc Pharmacy 82.9 ml/min; Est GFR (African American) 78.4 ml/min; Est GFR (Non-African American) 67.7 ml/min
[2022-08-07] MEDS: LOSARTAN POTASSIUM 50 MG TAB PO SCH (08:43)
--- NOTE | 2022-08-07 17:44 | Hospitalist Progress Note ---
Date of Service August 07, 2022 Assessment & Plan (1) Headache: Plan: per Dr. Pope's notes with addendum: Has been complaining of headache for the last few days Without any photophobia and without any other neurological symptoms Headache is likely secondary to high blood pressure 08/07 BP improved after Diltiazem increased from 120 to 180mg HR 59 though increase Losartan to 50mg BID instead Meningitis ruled out Did not have any significant symptoms and/or examination findings of meningitis Fever and sweating is likely secondary to viral illness as below Started with intravenous vancomycin and ceftriaxone and also IV Decadron for possible pneumococcal meningitis Appreciate ID input and recommendation was to observe off antibiotics Patient afebrile, leukocytosis trended down x2 days Meningitis unlikely Advised to continue monitoring at home (2) Viral illness: Plan: Has been having fever with sweating for the last 3 days Body aches and neck pain with some stiffness No other signs of meningitis on examination All symptoms resolved (3) HTN (hypertension): Plan: As above blood pressure was noted to very high Diltiazem increased to 180 mg at bedtime Heart rate noted to be 59 Discharge plan: Increase losartan 50 mg from daily to twice daily Continue diltiazem 120 mg at bedtime Follow-up with PCP in 1 week (4) Gout: Plan: Recent attack of gout No complaints Patient requested to have prednisone 20 mg daily x3 days to be used as needed for acute gout flare Disposition Discharge to home today Follow-up with PCP in 1 week plan of care discussed with patient in detail and at length all questions answered he is understanding, agreeable, comfortable with the plan of care Admission and Anticipated Discharge Date Admission Date: August 05, 2022 Subjective Follow-up for headache, uncontrolled hypertension, etc. Seen sleeping in bed, but easily awakened states he feels much better overall denies headache, neck pain, photophobia, fever/chills no chest pain, dyspnea, palpitations, dizziness no other symptoms states he is ready and would like to be discharged today Review of Systems Review of Systems: all noted and negative except for above Physical Exam Physical Exam: General- oriented x 3, not in distress, speaks in sentences with no effort or accessory muscle use Eyes- anicteric Neck- no JVD Lungs- clear breath sounds bilaterally, no rales/wheezes Heart- normal rate, regular rhythm; no murmurs Abdomen- normal bowel sounds, nondistended, soft, nontender Extremities- no pretibial edema, no calf tenderness Neuro- alert, oriented x 3; no gross focal neurologic deficits neck supple Skin- warm & dry Results & Data Results & Data ([facility]) Vital Signs (Past 12 Hours) Vital Signs Temp Pulse Pulse Resp BP BP Pulse Ox 08/07/22 10:23 36.4 C L 59 L 18 128/76 145/96 H 97 08/07/22 07:44 36.4 C L 59 L 18 128/76 97 08/07/22 07:16 64 O2 Del Method 08/07/22 10:23 08/07/22 07:44 Room Air 08/07/22 07:16 all noted and reviewed including below (1) Gout Chronicity: acute Gout etiology: unspecified cause Gout site: unspecified site Qualified Code(s): M10.9 - Gout, unspecified
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
== END 2022-08-07 11:55 | disposition home or self-care (01) ==
LOC: ED 21:26 → SUATTDRO 08-05 02:43 → INTOOBSV 08-05 02:43 → 2N 08-05 02:43